=== PATIENT | female | born 1985 | race Caucasian/White ===

== ENCOUNTER 2019-07-26 20:54 | Emergency (ER) | payer MEDICAID ==
[~2019-07-26] VITALS: Ht 157.5 cm; Wt 88.9 kg
[2019-07-26 20:58] VITALS: BP 114/72
--- NOTE | 2019-07-26 21:22 | NUR ---
PT BIBS C/O: HEADACHE X5 DAYS, "STUFFYNESS" X4 DAYS, 11 WEEKS , IN BED BEIGN SEEN BY
[2019-07-26] MEDS ORDERED: ACETAMINOPHEN ES 500 MG TABLET ONE (21:24)
[2019-07-26] MEDS ORDERED: ACETAMINOPHEN ES 500 MG TABLET PO ONE (21:30)
== END 2019-07-26 21:49 | disposition home or self-care (01) ==
LOC: ER 20:58
DX: O29.41 Spinal and epidural anesthesia induced headache during pregnancy, first trimester (principal); R51 Headache; Z60.2 Problems related to living alone; Z3A.12 12 weeks gestation of pregnancy